=== PATIENT | male | born 1955 | race Two or more races ===

== ENCOUNTER 2018-05-22 10:20 | Emergency (ER) | payer OTHER ==
[~2018-05-22] VITALS: Ht 182.9 cm; Wt 137.4 kg
[2018-05-22 10:22] VITALS: Ht 182.9 cm; Wt 137.4 kg
[2018-05-22 10:31] VITALS: BP 150/92
== END 2018-05-22 10:31 | disposition other institution (70) ==
LOC: ED 10:20
DX: Z02.89 Encounter for other administrative examinations (principal)